=== PATIENT | male | born 1990 | race Two or more races ===

== ENCOUNTER 2021-12-10 20:06 | Emergency (ER) | payer OTHER ==
[~2021-12-10] VITALS: Ht 162.6 cm; Wt 68.0 kg
[2021-12-10] MEDS ORDERED: INTESTINEX680 M1 PO (23:00)
[2021-12-10] MEDS ORDERED: PEPCID AC20 MG PO (23:00)
== END 2021-12-10 23:37 | disposition home or self-care (01) ==
LOC: ER 20:06
DX: R19.7 Diarrhea, unspecified (principal); B34.9 Viral infection, unspecified; A05.9 Bacterial foodborne intoxication, unspecified; Z20.828 Contact with and (suspected) exposure to other viral communicable diseases